=== PATIENT | female | born 1970 | race Caucasian/White ===

== ENCOUNTER 2018-10-10 23:24 | Emergency (ER) | payer MEDICAID ==
[~2018-10-10] VITALS: Ht 175.3 cm; Wt 76.2 kg
[2018-10-10 23:28] VITALS: Ht 175.3 cm; Wt 76.2 kg
[2018-10-11 00:45] VITALS: BP 145/85
== END 2018-10-11 00:45 | disposition home or self-care (01) ==
LOC: ED 23:24
DX: L25.9 Unspecified contact dermatitis, unspecified cause (principal); J32.9 Chronic sinusitis, unspecified; I10 Essential (primary) hypertension
CPT/HCPCS: J1885

== ENCOUNTER 2019-04-01 14:28 | Emergency (ER) | payer OTHER ==
[~2019-04-01] VITALS: Ht 175.3 cm; Wt 70.3 kg
[2019-04-01 14:33] VITALS: Ht 175.3 cm; Wt 70.3 kg
[2019-04-01 15:31] LABS: BASOPHIL % 0.1 % (0-2); PLATELET COUNT 276 x10^3mcL (130-400); RED CELL DISTRIBUTION WIDTH 13.7 % (11.5-14.5)
[2019-04-01 15:41] LABS: CALCIUM 9.7 mg/dL (8.5-10.1); CARBON DIOXIDE 23.4 mmol/L (21-32); CREATININE SERUM 1.4 mg/dL (0.6-1.0)
[2019-04-01 15:45] LABS: ALBUMIN 3.7 g/dL (3.4-5.0); BILIRUBIN TOTAL 0.5 mg/dL (0.20-1.00)
[2019-04-01 15:47] LABS: TOTAL PROTEIN, SERUM 8.3 g/dL (6.4-8.2)
[2019-04-01 16:32] LABS: UA SPECIFIC GRAVITY <=1.005 (1.005-1.035); microscopic required? YES; urine erythrocyte TRACE (NEGATIVE)
[2019-04-01 17:58] VITALS: BP 130/86
== END 2019-04-01 17:58 | disposition home or self-care (01) ==
LOC: ED 14:28
PROVIDERS: Emergency Medicine
DX: K57.32 Diverticulitis of large intestine without perforation or abscess without bleeding (principal); I10 Essential (primary) hypertension; R55 Syncope and collapse; N39.0 Urinary tract infection, site not specified
CPT/HCPCS: J2270; J2405; J2543; J7030